=== PATIENT | male | born 1995 | race Caucasian/White ===

== ENCOUNTER 2024-10-15 18:41 | Emergency (ER) | payer OTHER ==
[~2024-10-15] VITALS: Ht 188 cm; Wt 93.6 kg
[2024-10-15] MEDS ORDERED: IBUP80TA PO (21:12)
[2024-10-15] MEDS: IBUPROFEN 800 MG TAB PO ONE (21:17)
[2024-10-15 21:47] VITALS: BP 146/94; TEMP 99.7; O2SAT 97
== END 2024-10-15 21:56 | disposition home or self-care (01) ==
LOC: M ED 18:41
DX: S62.115A Nondisplaced fracture of triquetrum [cuneiform] bone, left wrist, initial encounter for closed fracture (principal); W01.0XXA Fall on same level from slipping, tripping and stumbling without subsequent striking against object, initial encounter; Y92.9 Unspecified place or not applicable; Y93.9 Activity, unspecified; Y99.1 Military activity

== ENCOUNTER 2024-12-20 14:36 | Emergency (ER) | payer OTHER ==
[~2024-12-20] VITALS: Ht 188 cm; Wt 101.7 kg
[~2024-12-20 14:36] MED LIST: IBUP80TA PO
[2024-12-20 15:20] LABS: KETONE, URINE AUTO RFX NEGATIVE (NEGATIVE); NITRITE, URINE AUTO RFX NEGATIVE (NEGATIVE); RBC, URINE AUTO RFX 3 /HPF (0-3); SQUAM EPITHELIAL CELL UR AURFX 0 /HPF (0-6)
[2024-12-20 15:21] LABS: LEUKOCYTE ESTERASE UR AUTO RFX 2+ (NEGATIVE); WBC, URINE AUTO RFX 42 /HPF (0-3)
[2024-12-20 16:16] LABS: Trichomonas vaginalis (AMP) NOT DETECTED (NEGATIVE)
[2024-12-20 16:39] LABS: GC DNA AMPLIFICATION POSITIVE (NEGATIVE)
[2024-12-20] MEDS: cefTRIAXone 500 MG VIAL IM ONE (18:32)
[2024-12-20] MEDS: LIDOCAINE 1% SDV 5 ML VIAL DILUENT ONE (18:32)
[2024-12-20 18:49] VITALS: BP 148/80; TEMP 97; O2SAT 98
== END 2024-12-20 18:45 | disposition home or self-care (01) ==
LOC: M ED 14:36
DX: A54.9 Gonococcal infection, unspecified (principal)
CPT/HCPCS: 81001; 87086; 87661; 87810; 87850; 96372; 99283; J0696